=== PATIENT | female | born 1965 | race Caucasian/White ===

== ENCOUNTER 2023-02-28 17:41 | Emergency (ER) | payer MEDICARE, SELFPAY ==
[2023-02-28 18:25] VITALS: BP 148/93; PULSE 88; RESP 18; TEMP 36.7; O2SAT 98; BMI 27.4
--- NOTE | 2023-02-28 19:57 | ED_ITS ---
Discharge Plan Disposition Patient Disposition: Home, Self-Care Prescriptions Prescriptions: New amoxicillin 875 mg tablet 875 mg PO BID 10 Days Qty: 20 0RF [id number] 3.5-10,000-1 mg/mL-unit/mL-% drops,suspension 4 drp otic (ear) TID 7 Days Qty: 10 0RF Referrals Follow up/Referrals: Provider,Referral, MD [Primary Care Provider] - See instructions Clinical Impressions Clinical Impression: External otitis of right ear, Otitis media of right ear Stand Alone Forms Stand Alone Forms: Work/School Release Discharge ED Provider: Abner Guzman General Adult HPI General Chief complaint: PAIN Stated complaint: right ear pain with drainage Time Seen by Provider: 02/28/23 19:12 Mode of Arrival: Ambulatory Source of Information: Patient Limitations: No Limitations Description of Symptoms (Recalled from ER Triage Doc. by RN): PT REPORTS R EAR PAIN FOR 2 WEEKS ALONG WITH SINUS ISSUES, DENIES FEVER History of Present Illness HPI narrative: Patient is a 58-year-old female present today with right ear pains been ongoing for 2 weeks has had some drainage no fevers or chills Related Data Previous Rx's Medication Instructions Recorded amoxicillin 875 mg tablet 875 mg PO BID 10 days #20 tabs 02/28/23 [id number] 3.5 4 drp otic (ear) TID 7 days #10 mL 02/28/23 mg-10,000 unit/mL-1 % ear drops,susp Allergies Allergy/AdvReac Type Severity Reaction Status Date / Time No Known Allergies Allergy Verified 02/28/23 18:39 [facility] Disclaimer: The information contained in this section may have been updated after the patient was seen, as this information can be updated by other users. Social History Smoking Status: Current every day smoker alcohol intake: never current occupational status: other Travel in the last 8 weeks: None ROS Obtained: Yes All systems reviewed & no additional complaints except as documented Physical Exam General General appearance: alert ENT ENT exam: Present other (. Positive right tragus on evidence of external auditory canal inflammation and some drainage no significant purulent debris or swelling there is also a purulent and bulging right tympanic membrane) Respiratory Respiratory exam: Present normal lung sounds bilaterally; Absent respiratory distress Cardiovascular Cardiovascular exam: Present regular rate; Absent tachycardia Neurological Exam Neurological exam: Present alert Medical Decision Making Francesco Inquiry Pt receiving controlled substance: No Vital Signs: 02/28/23 18:25 Temperature 98.1 F Temperature Source Oral Pulse Rate [Left Radial] 88 Respiratory Rate 18 Blood Pressure [Right Arm] 148/93 H Blood Pressure Mean [Right Arm] 111 Blood Pressure Source [Right Arm] Automatic Cuff Blood Pressure Position [Right Arm] Sitting 02 Sat by Pulse Oximetry 98 Oxygen Delivery Method Room Air Medical Decision Narrative: Nontoxic and nonseptic 58-year-old female present today with clinical evidence of right external otitis and right otitis media. Topical antibiotic drops and oral antibiotics prescribed patient advised to follow-up with an ear nose and throat doctor if is not improving in 1 to 2 weeks. Patient was discharged in stable condition. Critical Care Critical Care Time Critical Care Time: No
[2023-02-28 20:00] VITALS: BP 140/88; PULSE 81; RESP 18; TEMP 36.7; O2SAT 99
== END 2023-02-28 20:01 | disposition home or self-care (01) ==
PROVIDERS: Emergency Provider Student in an Organized Health Care Education/Training Program
DX: H60.91 Unspecified otitis externa, right ear (principal); H66.91 Otitis media, unspecified, right ear; F17.200 Nicotine dependence, unspecified, uncomplicated
CPT/HCPCS: 99283